=== PATIENT | female | born 1945 | race Caucasian/White ===

== ENCOUNTER 2018-12-22 11:43 | Emergency (ER) | payer MEDICARE ==
[2018-12-22 11:49] VITALS: BP 145/71
[2018-12-22] MEDS ORDERED: Lidocaine 1% 5ml 10 MG/ML VIAL IJ ONE (11:51)
[2018-12-22] MEDS ORDERED: DIPH,PERTUSS(ACELL),TET VAC/PF 0.5 ML DISP.SYRIN IM ONE ×2 (11:51→11:54)
--- NOTE | 2018-12-22 12:09 | ED Physician Documentation ---
General Adult - HPI Stated Complaint: finger injury Chief Complaint: Laceration/Recheck/Suture (3rd left finger (distal pad)) Additional Information: Patient is a 73-year old female who presents to the ER with a finger laceration to the distal pad of the 3rd left digit. She got her finger smashed in a garage door. 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: still present Severity: moderate Modifying Factors: smashed in garage door Location: Left 3rd finger-distal tip - ROS CONST: no problems EYES/ENT: none CVS/RESP: none GI/: none MS/SKIN/LYMPH: none NEURO/PSYCH: denies: headache - PAST HX Past History: hypertension Surgeries/Procedures: other (Appy, bladder) Immunizations: tetanus (updated today) Allergies/Adverse Reactions: Allergies Allergy/AdvReac Type Severity Reaction Status Date / Time meperidine [From Demerol] Allergy Verified 12/22/18 11:50 Home Medications: Ambulatory Orders Medication Instructions Recorded Amitriptyline HCl 100 mg PO DAILY 12/22/18 Cephalexin [Keflex] 500 mg PO Q6H #40 capsule 12/22/18 Lisinopril 10 mg PO DAILY 12/22/18 hydroCHLOROthiazide [Hydrodiuril] 25 mg PO DAILY 12/22/18 - SOCIAL HX Smoking History: non-smoker Alcohol Use: rarely Drug Use: none - FAMILY HX Family History: Yes - VITAL SIGNS Vital Signs: Vital Signs Temp Pulse Resp BP Pulse Ox 98.2 F 87 20 145/71 94 12/22/18 11:46 12/22/18 11:46 12/22/18 11:46 12/22/18 11:46 12/22/18 11:46 - REVIEWED ASSESSMENTS Nursing Assessment Reviewed: Yes Vitals Reviewed: Yes Procedures Wound Location: upper extremity (3rd distal left finger tip) Wound Length: 3 cm Wound's Depth, Shape: irregular Wound Explored: no foreign body removed Irrigated w/ Saline (ccs): 100 Betadine Prep?: No (chlorhexidine) Anesthesia: 1% Lidocaine Volume of Anesthetic: 5 ml Wound Debrided: minimal Wound Repaired With: sutures Suture Size/Type: 5:0, nylon Number of Sutures: 8 Layer Closure?: No Sterile Dressing Applied?: Yes (JOSHUA/TELFA/SALTY) Splint Applied?: Yes Type of Splint Applied: Finger splint d/t dital tuft fx ED Results Lab/Radiology - Radiology Radiology Impressions: HISTORY: 73-year-old female with left third finger pain after slammed in door. COMPARISON: None available. TECHNIQUE: Three views of the left third finger were performed. IMPRESSION: 1. Comminuted mildly displaced fracture of the left third finger distal phalangeal tuft. 2. No other fractures are identified about the left third finger. 3. Moderate to severe osteoarthritis. - Orders Orders: ED Orders Category Date Time Status Cleanse with NS and Betadine 1T Care 12/22/18 11:51 Active Finger Splint 1T Care 12/22/18 12:35 Active FINGER 2 VIEWS OR MORE [RAD] Stat Exams 12/22/18 Taken Cephalexin [Keflex] Med 12/22/18 12:36 Discontinued 1,000 mg PO NOW ONE Diph,Pertuss(Acell),Tet Vac/Pf [Adacel] Med 12/22/18 11:51 Discontinued 0.5 ml IM .ONCE ONE Diph,Pertuss(Acell),Tet Vac/Pf [Adacel] Med 12/22/18 11:54 Discontinued 0.5 ml IM .STK-MED ONE Lidocaine 1% 5ml [Xylocaine] Med 12/22/18 11:51 Discontinued 50 mg IJ NOW ONE General Adult Physical Exam - PHYSICAL EXAM GENERAL APPEARANCE: mild distress EENT: eye inspection normal, ENT inspection normal NECK: normal inspection, supple RESPIRATORY: breath sounds normal CVS: heart sounds normal ABDOMEN: normal bowel sounds BACK: ecchymosis SKIN: other (laceration to the tip of left distal 3rd digit) EXTREMITIES: normal range of motion NEURO: oriented X3, CN's nml as tested, motor nml, sensation nml, mood/affect nml, cognition normal Discharge Clincal Impression: Closed fracture of tuft of distal phalanx of finger, Laceration of finger of left hand Clincal Impression: (Ruled Out): Fracture, finger, distal phalanx, Finger laceration with complication Prescriptions: Cephalexin [Keflex] 500 mg PO Q6H #40 capsule Referrals: Cynthia Olivares MD [Primary Care Provider] - 2 Days Additional Instructions: Keep laceration clean and dry- apply triple antibiotic ointment and keep finger dressed. Keep finger splint on until follow up with PCP Keflex 500 mg by mouth every 6 hours for 10 days- 1000mg given in ER Watch for signs of infection; redness/swelling, drainage Follow up with PCP in 7-10 days to have sutures removed. Condition: Good Disposition: 01 HOME, SELF-CARE Decision to Admit: NO Decision Time: 13:00
[2018-12-22] MEDS ORDERED: CEPHALEXIN 250 MG CAPSULE PO ONE (12:36)
--- NOTE | 2018-12-22 13:28 | Diagnostic Imaging Report ---
LIZET DA SILVA [facility] [id number] [facility].[address] [address] Report Submission Date: Dec 22, 2018 12:21:43 PM CDT Patient Study Name: ASHLEY TOBAR Date: Dec 22, 2018 11:50:11 AM CDT Modality Type: DX Gender: F Description: FINGER 2 VIEWS OR MORE : 47 Institution: [facility] Physician: LIZET DA SILVA HISTORY: 73-year-old female with left third finger pain after slammed in door. COMPARISON: None available. TECHNIQUE: Three views of the left third finger were performed. IMPRESSION: 1. Comminuted mildly displaced fracture of the left third finger distal phalangeal tuft. 2. No other fractures are identified about the left third finger. 3. Moderate to severe osteoarthritis. Electronically signed on Dec 22, 2018 12:21:43 PM CDT by: Rober ORO
== END 2018-12-22 12:48 | disposition home or self-care (01) ==
LOC: ED 11:43
DX: S61.213A Laceration without foreign body of left middle finger without damage to nail, initial encounter (principal); W23.0XXA Caught, crushed, jammed, or pinched between moving objects, initial encounter; Y99.8 Other external cause status
CPT/HCPCS: 12002; 73140; 90715; 99283